=== PATIENT | male | born 1955 ===

== ENCOUNTER 2017-05-22 09:41 | Emergency (ER) | payer BC, OTHER ==
[2017-05-22 09:41] VITALS: BMI 26.4
[2017-05-22 09:49] VITALS: O2SAT 97
[2017-05-22] MEDS ORDERED: Naproxen 550 mg Tab PO STA (10:30)
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
[2017-05-22] MEDS ORDERED: Naproxen 550 mg Tab PO ONE (11:01)
[2017-05-22 11:42] VITALS: BP 146/88; PULSE 79; RESP 18; TEMP 97.9
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
== END 2017-05-22 11:42 | disposition home or self-care (01) ==
LOC: C.ER 09:41
DX: R07.89 Other chest pain (principal); I10 Essential (primary) hypertension; F17.210 Nicotine dependence, cigarettes, uncomplicated